=== PATIENT | male | born 1955 | race Caucasian/White ===

== ENCOUNTER 2022-03-12 01:01 | Day surgery (SDC) | payer MEDICARE, SELFPAY ==
[2022-03-12 08:55] VITALS: BP 150/98; PULSE 102; RESP 22; TEMP 36.1; O2SAT 97; BMI 36.9
[2022-03-12] MEDS: LACTATED RINGERS 1,000 ML 150 ML IV CONT (09:11)
[2022-03-12 09:15] LABS: Glucose Point of Care 140 mg/dl (65-105)
--- NOTE | 2022-03-12 09:25 | WPDHPUPDATE1 ---
History and Physical Update Update Date/Time: 03/12/22 09:25 History and Physical has been reviewed, including an updated exam of the patient. There are NO changes in the patient's condition. Risks, benefits, and alternatives have been discussed and questions answered. Patient agrees to proceed with procedure.
--- NOTE | 2022-03-12 10:02 | P.PNAN_ITS ---
Anes - Initial Pre Proc Eval Procedure: Operation Date: 03/12/22 10:00 Proposed Procedures p Esophagogastroduodenoscopy - Stanley Katz MD Date/Time: 03/12/22 10:02 Surgeon: Stanley Katz MD Pre Op Diagnosis: epigastric pain Patient Data Age: 66 Gender: M Height: 1.68 m Weight: 103.8 kg Last Vital Signs Temp 96.9 F L 03/12/22 08:55 Pulse 102 H 03/12/22 08:55 Resp 22 H 03/12/22 08:55 BP 150/98 H 03/12/22 08:55 Pulse Ox 97 03/12/22 08:55 Allergies Allergy/AdvReac Type Severity Reaction Status Date / Time No Known Allergies Allergy Verified 03/12/22 08:52 Home Medications Medication Instructions Recorded Confirmed Type citalopram 40 mg tablet 40 mg PO DAILY 02/25/22 03/06/22 History folic acid 1 mg tablet 1 mg PO DAILY 02/25/22 03/06/22 History losartan 100 mg tablet 100 mg PO DAILY 02/25/22 03/06/22 History metformin 500 mg tablet 500 mg PO BID 02/25/22 03/06/22 History omeprazole 20 mg capsule,delayed 20 mg PO DAILY 02/25/22 03/06/22 History release rosuvastatin 20 mg tablet 20 mg PO DAILY 02/25/22 03/06/22 History tamsulosin 0.4 mg capsule 0.4 mg PO DAILY 02/25/22 03/06/22 History zolpidem 10 mg tablet 10 mg PO .night tablet 02/25/22 03/06/22 History oxybutynin chloride 10 mg PO DAILY 03/06/22 03/06/22 History Laboratory Tests 03/12/22 09:09 POC Capillary Glucose 140 mg/dl H mg/dl (65-105) Patient hx anesthesia problems: none Family hx anesthesia problems: none Results Review: All pre-operative results and documents have been reviewed as part of the pre-operative evaluation. [facility] Family History Family History Father AA (alcohol abuse) Mother Diabetes mellitus Hypertension Social History Social History (Updated 02/25/22 @ 14:30 by Diya Cantu MA) Smoking status: Former smoker Tobacco type: cigarettes Second hand tobacco smoke exposure: No Alcohol intake: current Drinks per week: 30 Alcohol use details: BEERS Substance use: current Substance use type: marijuana Other substance usage details: USES AT NIGHT FOR SLEEP Living arrangements: with friend(s) Spiritual care concerns: No Anes - Eval Final PreProcedure Day of Procedure 03/12/22 10:02 Patient weight: obese Heart: regular rate and rhythm Lungs: clear to auscultation Airway: Mallampati scale class III Neurological: alert and oriented Last oral intake: >/= 8 hours ASA classification: III Emergent: no Anesthetic plan: proceed Anesthesia type and monitoring: general GIVS and standard monitoring Results Review: All pre-operative results and documents have been reviewed as part of the pre-operative evaluation. Informed Consent: The patient's anesthetic plan and its attendant risks and benefits were discussed with the patient/family/POA. Questions were solicited and answers provided to the satisfaction of the patient/family/POA.
[2022-03-12 10:49] VITALS: BP 161/84; PULSE 101; RESP 24; O2SAT 97
[2022-03-12 10:59] VITALS: BP 169/93; PULSE 98; RESP 26; O2SAT 98
[2022-03-12 11:09] VITALS: BP 163/89; PULSE 100; RESP 17; O2SAT 98
== END 2022-03-12 11:20 | disposition home or self-care (01) ==
PROVIDERS: PCP Internal Medicine; Visit Provider Internal Medicine Gastroenterology
PROC: 0DJ08ZZ Inspection of Upper Intestinal Tract, Via Natural or Artificial Opening Endoscopic (ICD-10-PCS; CPT 43235; principal; 2022-03-12 10:00)
DX: R10.13 Epigastric pain (principal); R14.2 Eructation; K31.7 Polyp of stomach and duodenum; Z79.84 Long term (current) use of oral hypoglycemic drugs; Z87.891 Personal history of nicotine dependence; F12.90 Cannabis use, unspecified, uncomplicated; E66.9 Obesity, unspecified; Z68.36 Body mass index [BMI] 36.0-36.9, adult
CPT/HCPCS: 43251; 82948; 88305; J2704; J7120